=== PATIENT | male | born 1955 | race Caucasian/White ===

== ENCOUNTER 2018-01-20 07:43 | Inpatient (IN) | payer OTHER ==
[~2018-01-20] VITALS: Ht 177.8 cm; Wt 86.0 kg
[2018-01-20 08:44] LABS: HEMATOCRIT 43.2 % (38.0-50.0); HEMOGLOBIN 16.2 G/DL (12.5-16.6); MCH 34.2 PG (29.0-34.0); MCHC 37.5 G/DL (30.0-36.0); MCV 91.1 FL (86-99); PLATELET COUNT 210 K/uL (156-360); RBC DIS.WIDTH-CV 12.4 % (11.8-14.6); RED BLOOD COUNT 4.74 M/uL (4.00-5.50); WHITE BLOOD COUNT 6.1 K/uL (4.1-10.2)
[2018-01-20 08:52] LABS: CHLORIDE 102 mEq/L (99-109); POTASSIUM 3.5 mEq/L (3.7-5.4); SODIUM 136 mEq/L (136-147)
[2018-01-20 08:55] LABS: GLUCOSE 121 mg/dL (70-99); TOTAL PROTEIN 6.8 g/dL (6.4-8.3)
[2018-01-20 08:57] LABS: TOTAL BILIRUBIN 0.9 mg/dL (0.0-1.0)
[2018-01-20 08:58] LABS: ALKALINE PHOSPHATASE 61 IU/L (3-129); CREATININE 0.8 mg/dL (0.6-1.3); GFR ESTIMATE (CALCULATED) > 59 mL/min/ (58.99-99999)
[2018-01-20 08:59] LABS: UREA NITROGEN (BUN) 8 mg/dL (9-23)
[2018-01-20 09:00] LABS: AST (GOT) 27 IU/L (2-34)
[2018-01-20 09:01] LABS: ALT (GPT) 24 IU/L (3-49)
[2018-01-20 09:06] LABS: TROP-I INTERPRETATION NEGATIVE; TROPONIN-I < 0.01 ng/mL (0.0-0.30)
[2018-01-20 11:20] LABS: D-DIMER ELISA < 150.00 ng/mLDDU (<230)
[2018-01-20] MEDS ORDERED: TENORETIC 501 TABLET PO (11:40)
[2018-01-20] MEDS ORDERED: SIMVASTATIN20 MG PO (11:40)
[2018-01-20] MEDS ORDERED: LOSARTAN POTAS100 MG PO (11:41)
[2018-01-20] MEDS ORDERED: OMEPRAZOLE20 MG PO (11:42)
[2018-01-20 14:45] VITALS: BP 145/87
[2018-01-20 17:11] LABS: TROP-I INTERPRETATION NEGATIVE; TROPONIN-I < 0.01 ng/mL (0.0-0.30)
[2018-01-20 19:53] VITALS: BP 137/67
[2018-01-20 23:38] LABS: TROP-I INTERPRETATION NEGATIVE; TROPONIN-I < 0.01 ng/mL (0.0-0.30)
[2018-01-20 23:48] VITALS: BP 123/70
[2018-01-21 04:21] VITALS: BP 158/73
[2018-01-21 07:48] VITALS: BP 141/78
[2018-01-21 11:49] VITALS: BP 141/70
[2018-01-21 15:00] VITALS: BP 140/76
[2018-01-21 19:29] VITALS: BP 152/73
[2018-01-22 00:30] VITALS: BP 157/80
[2018-01-22 04:24] VITALS: BP 129/75
[2018-01-22 08:00] VITALS: BP 160/75
[2018-01-22] MEDS ORDERED: SPIRIVA RESPIMAT4 GM IH (10:07)
[2018-01-22] MEDS ORDERED: ALPRAZOLAM0.25 M2 PO (10:07)
[2018-01-22] MEDS ORDERED: DULERA 100 MCG/13 GM IH (10:07)
[2018-01-22] MEDS ORDERED: PREDNISONE10 MG PO (10:08)
[2018-01-22 13:00] VITALS: BP 137/78
== END 2018-01-22 14:45 | disposition home or self-care (01) | DRG 192 ==
LOC: EME 07:43 → EDOF 10:55 → 5WEST 10:55 → ENRESERV 11:04 → 5WEST 14:32 → ENPENDDIS 01-22 13:56 → 5WEST 01-22 14:45
PROVIDERS: Internal Medicine; Nurse Practitioner Family
DX: J44.1 Chronic obstructive pulmonary disease with (acute) exacerbation (principal); J20.9 Acute bronchitis, unspecified; J44.0 Chronic obstructive pulmonary disease with (acute) lower respiratory infection; I45.10 Unspecified right bundle-branch block; E87.6 Hypokalemia; E78.00 Pure hypercholesterolemia, unspecified; I10 Essential (primary) hypertension; F17.210 Nicotine dependence, cigarettes, uncomplicated; Z71.6 Tobacco abuse counseling; Z82.3 Family history of stroke; Z82.49 Family history of ischemic heart disease and other diseases of the circulatory system
CPT/HCPCS: 71046; 80053; 83880; 84484; 85027; 85379; 87502; 93005; 93306; 94640; 94640 76; 94799; 99202; 99281; 99285; G0378; J1650; J2920; J7030; J7512